=== PATIENT | female | born 2005 | race Caucasian/White ===

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

== ENCOUNTER 2024-11-14 21:08 | Outpatient (REF) | payer MEDICAID, SELFPAY ==
--- OUTSIDE RECORDS SUMMARY | 2024-11-14 21:12 | XMS_ITS | Clinical Summary ---
Author Organization [facility] Address [address] [place] [id number] Care Team Providers Care Lift Manager Name Role Phone Unavailable Primary Care Provider Unavailabl e Social History Tobacco Use Types Packs/Day Years Used Date Smoking Tobacco: Never Assessed Comments Unknown Sex and Gender Information Value Date Recorded Sex Assigned at Not on file Legal Sex Female 10:45 EDT Gender Identity Not on file Sexual Orientation Not on file Plan of Treatment Health Maintenance Due Date Last Done Comments Hepatitis C Screen 2004 Hepatitis B Vaccine (1 of 3 - 19+ 3-dose series) 02/27 COVID-19 Vaccine ( season) 2024
--- OUTSIDE RECORDS SUMMARY | 2024-11-14 21:12 | XMS_ITS | Encounter Summary ---
Author Organization [facility] Address [address] [place] [id number] Care Team Providers Care Inspector Name Role Phone Unavailable Primary Care Provider Unavailabl e Encounter Details Date Type Department Care Team (Late st Contact Info) Description 08/11/[address] [facility] Pathology & Laboratory Medicine - [facility] [address] [place] [address] Outr Resulting Lab, Provider Social History Tobacco Use Types Packs/Day Years Used Date Smoking Tobacco: Never Assessed Comments Unknown Sex and Gender Information Value Date Recorded Sex Assigned at Not on file Legal Sex Female 10:45 EDT Gender Identity Not on file Sexual Orientation Not on file documented as of this encounter Plan of Treatment Not on file documented as of this encounter Procedures Procedure Name Priority Date/Time Associated Diagnosis Comments CHLAMYDIA/N. GONORRHOEAE AMPLIFIED NUCLEIC ACID Routine 08/10/2023 9:41 EDT documented in this encounter Results * CHLAMYDIA/N. GONORRHOEAE AMPLIFIED RNA (08/10/2023 9:41 EDT) Neisseria gonorrhoeae Result Negative Negative 08/12/2023 15:04 EDT [facility] Chlamydia trachomatis Result Negative Negative 08/12/2023 15:04 EDT [facility] Swab VAGINAL STRUCTURE / Unknown 08/10/2023 9:41 EDT 08/11/2023 23:07 EDT us Provider Outr Resulting Lab MICROBIOLOGY - GENER AL ORDERABLES Final Result [facility] [address] [place] [address] documented in this encounter Visit Diagnoses Not on filedocumented in this encounter
--- OUTSIDE RECORDS SUMMARY | 2024-11-14 21:12 | XMS_ITS | Referral Summary ---
Author Organization [facility] Address [address] [place] [address] Care Team Providers Care Marketing Engineer Name Role Phone Unavailable Primary Care Provider Unavailabl e Social History Tobacco Use Types Packs/Day Years Used Date Smoking Tobacco: Never Assessed Comments Unknown Sex and Gender Information Value Date Recorded Sex Assigned at Not on file Legal Sex Female 10:45 EDT Gender Identity Not on file Sexual Orientation Not on file Plan of Treatment Not on file
--- OUTSIDE RECORDS SUMMARY | 2024-11-14 21:12 | XMS_ITS | Encounter Summary ---
Author Organization [facility] Address [address] [place] [address] Care Team Providers Care Steel Inspector Name Role Phone Unavailable Primary Care Provider Unavailabl e Encounter Details Date Type Department Care Team (Late st Contact Info) Description 08/04/2021 Lab Requisition [facility] Pathology & Laboratory Medicine - [facility] [address] [place] [address] Outr Resulting Lab, Provider Social History Tobacco [...] Comments CHLAMYDIA/N. GONORRHOEAE AMPLIFIED NUCLEIC ACID Routine 08/03/2021 14:10 EDT documented in this encounter Results * CHLAMYDIA/N. GONORRHOEAE AMPLIFIED RNA (08/03/2021 14:10 EDT) Neisseria gonorrhoeae Result Negative Negative 08/05/2021 14:39 EDT [facility] Chlamydia trachomatis Result Negative Negative 08/05/2021 14:39 EDT [facility] Urine URINE / Unknown 08/03/2021 1 4:10 EDT 08/04/2021 17:42 EDT Narrative [facility] - 08/05/2021 14:39 EDT A first catch urine specimen is acceptable for detection of Gonorrhea and Chlamydia, but might detect up to 10% fewer infections when compared with vaginal and endocervical swab samples. us Provider Outr Resulting Lab MICROBIOLOGY - GENER AL ORDERABLES Final Result [facility] [address] [place] [address] documented in this encounter Visit Diagnoses Not on filedocumented in this encounter
== END 2024-11-14 21:09 | disposition home or self-care (01) ==
LOC: LBN 21:08
PROVIDERS: PCP Physician Assistant; Visit Provider Family Medicine
DX: N39.0 Urinary tract infection, site not specified (principal); R82.89 Other abnormal findings on cytological and histological examination of urine
CPT/HCPCS: 87086

== ENCOUNTER 2024-12-13 13:06 | Outpatient (REF) | payer MEDICAID, SELFPAY ==
[2024-12-13 19:45] LABS: ALT 25 U/L (14-59); AST 17 U/L (15-37); Albumin 4.1 g/dL (3.4-5.0); Alkaline Phosphatase 67 U/L (46-116); Anion Gap 4.9 mmol/L (3-11); BUN 10 mg/dL (7-18); Bilirubin, Total 0.46 mg/dL (0.2-1.0); CO2 30.1 mmol/L (21.0-32.0); CREATININE 0.8 mg/dL (0.55-1.02); Calcium 9.3 mg/dL (8.5-10.1); Calculated LDL 58 mg/dL (<100); Chloride 108 mmol/L (98-107); Cholesterol 103 mg/dL (<200); Estimated GFR 108.11 (mL/min/1.73m2); Glucose 82 mg/dL (74-106); HDL Cholesterol 39 mg/dL (40-60); Potassium 4.1 mmol/L (3.5-5.1); Sodium 143 mmol/L (136-145); Total Protein 8.3 g/dL (6.4-8.2); Triglyceride 33 mg/dL (<150)
[2024-12-16 10:05] LABS: Hepatitis C Ab w Rflx HCV PCR Negative (Negative)
[2024-12-16 10:26] LABS: HIV-1/2 Ag & Ab Screen Negative (Negative)
[2024-12-16 12:03] LABS: Chlamydia Result Negative (Negative); GC Result Negative (Negative)
== END 2024-12-13 13:07 | disposition home or self-care (01) ==
LOC: NCHCN 13:06
PROVIDERS: PCP Physician Assistant; Visit Provider Physician Assistant
DX: Z11.59 Encounter for screening for other viral diseases (principal); Z13.220 Encounter for screening for lipoid disorders; Z11.4 Encounter for screening for human immunodeficiency virus [HIV]
CPT/HCPCS: 80053; 80061; 86803; 87389; 87491; 87591

== ENCOUNTER 2025-09-28 11:05 | Emergency (ER) | payer SELFPAY ==
[2025-09-28 11:09] VITALS: BP 134/91; PULSE 97; RESP 18; TEMP 36.9; O2SAT 98
[2025-09-28 11:11] VITALS: BP 134/91; PULSE 97; RESP 18; TEMP 36.9; O2SAT 98
[2025-09-28 11:27] LABS: Glucose 100 mg/dL (Negative)
[2025-09-28 11:38] LABS: WBC 20-50 HPF (0-5)
[2025-09-28] MEDS: MacroBID 100 MG CAP PO (11:56)
--- NOTE | 2025-09-28 14:28 | ED.GENADUL_ITS ---
Discharge Plan Disposition Patient Disposition: Home Discharge Details Clinical Impression: UTI (urinary tract infection) Primary Care Provider: Charis Wilson ED Provider: Sheldon Rowland Home Meds and New Rx's Prescriptions: New nitrofurantoin monohyd/m-cryst [Macrobid] 100 mg capsule 100 mg PO Q12H 5 Days Qty: 10 0RF Rx Instructions: must administer with a meal/food No Action Kyleena 17.5 mcg/24 hrs (5 yrs) 19.5 mg intrauterine device 1 device intrauterine ONCE Qty: 1 0RF Rx Instructions: as a single dose Discharge Instructions Instructions: Urinary Tract Infection, Adult ED Additional Instructions: Please follow-up with your primary care provider regarding your visit to the emergency department today. Be sure to discuss results of all test performed here today to include radiology, and laboratory testing as well as results for any pending cultures. Should your symptoms worsen, or if you develop new concerning symptoms, please return immediately emergency department for further evaluation. Stand Alone Forms: Portal Information Discharge Data Discharge Date/Time-TO BE ENTERED AT DEPARTURE: 09/28/25 11:59 HPI General Date/Time Provider Initiated Documentation: 09/28/25 11:09 . HPI Narrative: MDM/Narrative: 20-year-old female presents of 2-day history of dysuria with increased urinary frequency. UA consistent with infection. No evidence of pyelonephritis or other significant life-threatening infection. Will discharge patient on Macrobid. Clinical impression: Simple UTI Disposition: Home HPI: 20-year-old female presenting for evaluation of 2 days of dysuria with associated increased urinary frequency. History of similar UTIs in the past. Denies any abdominal pain, back pain, nausea, vomiting, diarrhea, fever, chills or any other concerning symptoms. ROS: Negative besides as mentioned above Exam: Gen: A&O NAD HEENT: NCAT, EOMI, not icteric. External ears normal. No rhinorrhea. Moist mucous membranes. Neck: Supple, full range of motion, no observable masses, No meningeal sign. Lungs: No Respiratory distress. CV: RRR, no edema. Abdomen: Soft, nondistended, No rebound tenderness. No CVA tenderness bilaterally MSK: No joint swelling, no redness. Skin: No rashes, petechiae, lesions. Normal color per patient. Neuro: Normal Gait, Grossly intact. Psych: Appropriate for situation. Labs: Laboratory Tests Range/Units 09/28/25 11:18 Urine Color (Yellow) [place] Urine Clarity (Clear) Clear Urine pH (5-8) 5.5 Ur Specific [place] (1.005-1.025) 1.025 Urine Protein (Neg-Trace) mg/dL >=300 H Urine Ketones (Negative) mg/dL Trace H Urine Blood (Negative) Moderate H Urine Nitrite (Negative) Positive H Urine Bilirubin (Negative) Small H Urine Urobilinogen (Up to 0.2) mg/dL >=8.0 H Ur Leukocyte Esterase (Negative) Large H Urine RBC (0-2) HPF 10-20 H Urine WBC (0-5) HPF 20-50 H Ur Epithelial Cells (Negative) HPF Moderate Urine Crystals (Negative) HPF Negative Urine Bacteria (Negative) HPF Moderate Urine Casts (Negative) LPF Negative Urine Mucus (Negative) Negative Ur Culture Indicated? No/Sq. Contamination Urine Glucose (Negative) mg/dL 100 H Related Data Home Medications Medication Instructions Recorded Confirmed levonorgestrel 17.5 mcg/24 hr (up 1 device intrauterin e ONCE #1 ea 01/22/23 09/28/25 to 5 yrs) 19.5mg intrauterine device (Kyleena) nitrofurantoin 100 mg PO Q12H 5 days #10 ca ps 09/28/25 monohydrate/macrocrystals 100 mg capsule (Macrobid) Previous Rx's Medication Instructions Recorded levonorgestrel 17.5 mcg/24 hr (up 1 device intrauterin e ONCE #1 ea 01/22/23 to 5 yrs) 19.5mg intrauterine device (Kyleena) nitrofurantoin 100 mg PO Q12H 5 days #10 ca ps 09/28/25 monohydrate/macrocrystals 100 mg capsule (Macrobid) Allergies Allergy/AdvReac Type Severity Reaction Status Date / Time No Known Allergies Allergy Verified 09/28/25 11:11 General Stated Complaint: Urinary ERNESTO: 4 Course Vital Signs Vital signs: Vital Signs Temperature 36.9 C 09/28/25 11:09 Pulse 97 H 09/28/25 11:09 Respiratory Rate 18 09/28/25 11:09 Blood Pressure 134/91 H 09/28/25 11:09 Pulse Oximetry 98 09/28/25 11:09 Temperature 36.9 C 09/28/25 11:11 Pulse 97 H 09/28/25 11:11 Respiratory Rate 18 09/28/25 11:11 Blood Pressure 134/91 H 09/28/25 11:11 Pulse Oximetry 98 09/28/25 11:11 Lab/Test Results Lab/Test Results: Laboratory Tests Range/Units 09/28/25 11:18 Urine Color (Yellow) [place] Urine Clarity (Clear) Clear Urine pH (5-8) 5.5 Ur Specific [place] (1.005-1.025) 1.025 Urine Protein (Neg-Trace) mg/dL >=300 H Urine Ketones (Negative) mg/dL Trace H Urine Blood (Negative) Moderate H Urine Nitrite (Negative) Positive H Urine Bilirubin (Negative) Small H Urine Urobilinogen (Up to 0.2) mg/dL >=8.0 H Ur Leukocyte Esterase (Negative) Large H Urine RBC (0-2) HPF 10-20 H Urine WBC (0-5) HPF 20-50 H Ur Epithelial Cells (Negative) HPF Moderate Urine Crystals (Negative) HPF Negative Urine Bacteria (Negative) HPF Moderate Urine Casts (Negative) LPF Negative Urine Mucus (Negative) Negative Ur Culture Indicated? No/Sq. Contamination Urine Glucose (Negative) mg/dL 100 H POC- Test(urine) Negative PFSH All Active Problems (Updated 09/28/25 @ 11:31 by Sheldon Rowland MD) UTI (urinary tract infection) (Acute) IUD (intrauterine device) in place (Acute) 01/04/2023. Nexplanon removed Kyleena inserted. Encounter for IUD insertion (Acute) History of abnormal uterine bleeding (Acute) Longstanding episodes of oligomenorrhea sometimes lasting 6 months. We will check TSH around the time of the next office visit. Abdominal pain (Acute) Medical History (Updated 09/28/25 @ 11:31 by Sheldon Rowland MD) Encounter for Nexplanon removal 12/2022. secondary to AUB. Pt will have Kyleena inserted for cycle control and control. Nexplanon in place placed 2019. Removed 11/2022 irreg menses. Social History (Updated 12/23/22 @ 17:04 by Estefani Hightower MD) Smoking/Tobacco Use Status: Never Smoking risk assessment performed?: Yes Alcohol Intake: never Drug use: Never Adopted: No Household members: other Details: lives with grandmother. was living with father (subtance use disorder) Number of Children: 0 Education Level: high school Details: [employer] x[employer] yrs then [employer]. Has interest in childcare. 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 does not have car. Sexually active: Yes Additional Social history: several step siblings. Lived with mother during middle school. Mother was drinking heavily. Pt cooked for family. Moved in with father in but father has substance use issues and pt is now living with grandmother in her trailer on [address]. Last BF was 6mo ago. Female Reproductive History Menstrual Age of Menarche: 10 Duration of menses: 3-5 days control method: implanted History History 0 Para Hx # Term Pregnancies Multiple births Hx # Pregnancies Ectopic pregnancies AB induced Hx Number of Living Children AB spontaneous
== END 2025-09-28 11:59 | disposition home or self-care (01) ==
PROVIDERS: Emergency Provider General Practice; PCP Physician Assistant
DX: N39.0 Urinary tract infection, site not specified (principal)
CPT/HCPCS: 99283 ×2; 81025; 81003; 81015